=== PATIENT | female | born 1930 | race Caucasian/White ===

== ENCOUNTER → 2017-01-15 | Outpatient (CLI) | payer OTHER ==
[~2017-01-15] MED LIST: ALDACTONE50 MG PO; ALENDRONATE SOD70 MG PO; ALEVE220 MG PO; ASPIRIN81 M2 PO; ATORVASTATIN CA40 MG PO; CARAFATE 1 GM TA1 G1 PO; COREG6.25 MG PO; IBUPROFEN 200200 M1 PO; KLOR-CON 1010 MEQ PO; LASIX 20 MG TAB20 MG PO; MOBIC15 MG PO; PROTONIX40 M1 PO; SYNTHROID50 MCG PO; TYLENOL325 MG PO; VITAMIN D1000 UNI1 PO; VITAMIN D1000 UNIT
== END ==
LOC: CAT 08:22
DX: R91.1 Solitary pulmonary nodule (principal)

== ENCOUNTER → 2017-10-25 | Outpatient (CLI) | payer OTHER ==
[~2017-10-25] MED LIST changes: +ULTRAM 50MG TAB50 MG PO
== END ==
LOC: MRI 10:18
DX: S46.912A Strain of unspecified muscle, fascia and tendon at shoulder and upper arm level, left arm, initial encounter (principal); S43.402A Unspecified sprain of left shoulder joint, initial encounter; M25.412 Effusion, left shoulder; M19.012 Primary osteoarthritis, left shoulder; R60.0 Localized edema; X58.XXXA Exposure to other specified factors, initial encounter; Y93.89 Activity, other specified; Y92.89 Other specified places as the place of occurrence of the external cause; Y99.8 Other external cause status

== ENCOUNTER 2017-12-25 05:26 | Inpatient (IN) | payer OTHER ==
[2017-12-16 13:12] LABS: URINE BILIRUBIN NEGATIVE (Negative); URINE BLOOD NEGATIVE (Negative); URINE CLARITY CLEAR; URINE COLOR YELLOW; URINE GLUCOSE-RANDOM* NEGATIVE (Negative); URINE KETONES NEGATIVE (Negative); URINE LEUKOCYTES-REFLEX NEGATIVE (Negative); URINE NITRITE-REFLEX NEGATIVE (Negative); URINE PROTEIN (DIPSTICK) NEGATIVE (Negative); URINE SPECIFIC GRAVITY 1.015 (1.005-1.035); URINE UROBILINOGEN 0.2 E.U./dl (0.2-1.0)
[2017-12-16 13:13] LABS: HEMOGLOBIN 14.4 gm/dL (12.0-15.0); MCH 31.5 pg (26.0-34.0); MCHC 34.2 g/dL (28.0-37.0); MCV 92.1 fL (80.0-100.0); RBC 4.56 mil/uL (4.20-5.00); RDW 12.9 % (10.5-14.5); WBC 7.4 thou/uL (4.0-11.0)
[2017-12-16 13:23] LABS: CALCIUM 9.7 mg/dL (8.5-10.1); CREATININE 1.1 mg/dL (0.6-1.0); POTASSIUM 4.5 mmol/L (3.5-5.1)
[2017-12-16 13:26] LABS: PROTIME 10.3 Seconds (9.3-11.4)
[~2017-12-25] VITALS: Ht 149.9 cm; Wt 55.3 kg
--- NOTE | ~2017-12-25 | EKG ---
[place] [address] [facility] [place] [place] [address] ELECTROCARDIOGRAM REPORT Name: HIEN BUCK [facility]: [facility] [id number] Admission: Attend Phys: Brian France Discharge: Date of : 34 Report #: [id number] THIS REPORT FOR: //name// [facility] Test Date: 2017-12-16 Test Time: 13:10:59 Pat Name: HIEN BUCK Department: Room: Gender: F Solar Consultant: mai : 1930 Requested By: Brian Nava Order Number: [id number] MD: Rishi Taveras Measurements Intervals [place] Rate: 72 P: 62 AL: 152 QRS: 36 QRSD: 88 T: 59 QT: 391 QTc: 428 Interpretive Statements Sinus rhythm Abnormal R-wave progression, early transition Compared to ECG 05/17/2015 07:59:54 Sinus bradycardia no longer present Electronically Signed On 12-17-2017 10:20:19 CDT by Rishi Taveras [email or web address] <ELECTRONICALLY SIGNED> By: Rishi Taveras MD, [facility] 12/17/17 1020 1310 1310 Rishi Taveras MD, FACC /EPI
--- NOTE | ~2017-12-25 | O ---
[facility] [place] [address] OPERATIVE REPORT Name: HIEN BUCK Room #: 150-1 ADM IN M.R.#: [id number] Admission: 12/25/17 Attend Phys: Brian France Discharge: Date of : 34 Report #: [id number] THIS REPORT FOR: //name// CC: Brian Nava Veronica Dennis DATE OF SERVICE: 12/25/2017 PREOPERATIVE DIAGNOSES: Right shoulder pain, rotator cuff tear arthropathy. POSTOPERATIVE DIAGNOSES: Right shoulder pain, rotator cuff tear arthropathy, with torn long head of biceps tendon and intraarticular loose body. PROCEDURE PERFORMED: Right reverse total shoulder arthroplasty with loose body removal. SURGEON: Brian Nava MD. CERAMIC RESEARCH ENGINEER: Barbie Palacios PA-C. ANESTHESIA: General with preoperative interscalene block. IMPLANTS UTILIZED: DePuy Delta Xtend reverse total shoulder size 10. Hydroxyapatite coated stem with size 1 epiphysis, 38 mm eccentric glenosphere with a +9 poly. DESCRIPTION OF PROCEDURE: After proper identification of the patient and operative site in preoperative holding area, the operative site was signed by myself. Prophylactic antibiotics given. The patient elected to receive an interscalene block after reviewing the risks, benefits, alternatives and complications with Anesthesia. After a satisfactory block, the patient was brought back to the operative suite. After induction of satisfactory general endotracheal anesthesia, the right shoulder was examined, with range of motion was comparable to the preoperative assessment. The patient was carefully positioned in the beach chair position with head of bed elevated approximately 40 degrees. Care was taken to position the neck in a neutral alignment. Anterior deltopectoral approach was planned. A Bycler limb positioning system was utilized throughout the entire procedure. The shoulder was sterilely prepped and draped in the usual manner. Final skin draping was with Ioban. Skin was incised sharply. Full thickness skin flaps were developed. Cephalic vein was identified and retracted laterally. Subdeltoid adhesions were carefully released. A brown retractor was used to retract the soft tissues. A massive rotator cuff tear was noted. Extensive arthrosis on both sides of the joint were noted. With full thickness chondral loss and even mild bone wear of the glenoid, portion of the inferior subscap was still intact, and this was carefully released off the lesser tuberosity. There was no evidence of long [address] [address] OPERATIVE REPORT Name: TREVOR BUCKJOVAN Espino Room #: 150-1 [facility] IN .[place].#: [id number] Admission: 12/25/17 Attend Phys: Brian France Discharge: Date of : 34 Report #: [id number] head of the biceps tendon. A large intra-articular loose body measuring approximately 2 x 2 cm was noted. There was complete tear of the supraspinatus and infraspinatus with a portion of the teres minor still intact. Humeral head was delivered out the wound, and using the appropriate intramedullary cutting guides, which had been reamed up to a size 10, which matched preoperative templating, a humeral head osteotomy was performed in approximately 20 degrees of retroversion using the cutting guide at 155 degrees. Head was removed. Peripheral osteophytes were carefully removed. Overall, bone quality was quite thinned and osteoporotic. Protection plate was applied. At this point, the lamina electrical instrument repairer was used to carefully distract. The joint anterior capsule was released off the subscapularis with a right angle. Labrum was released circumferentially. Inferior capsule was carefully released off the glenoid side at this point, as well as a small portion of the triceps insertion. There was excellent glenoid visualization. The patient had more posterior superior wear of the glenoid. Guide pin was placed, its position was verified visually as well as by palpations where the pin exited the medial glenoid vault. The glenoid was carefully reamed. The Mark reamer was utilized. Any peripheral osteophytes were carefully removed. Central peg was drilled. This was contained and then a standard metaglene was carefully inserted. It had good purchase. Superior and inferior locking screws were placed as well as anterior and posterior nonlocking screws. These were sequentially tightened. Locking screws were then locked. This had excellent purchase. A 38 mm eccentric glenosphere was placed over a guidewire. Eccentricity was positioned. The tightening screw was reversed until a click was noted, and the glenosphere was felt to be seated. This was then tightened, impacted and tightened three additional times until this was felt to be fully seated. The wound was thoroughly irrigated with normal saline. A size 10 stem, size 1 epiphysis that was centered with a +9 poly provided the best overall fit and stability of the shoulder without over tensioning the soft tissues. These were the final implants inserted. Two drill holes have been placed in the lesser tuberosity and bicipital groove region where #2 FiberWires were placed. Repair of the more inferior subscapularis of the wound and humerus had been thoroughly irrigated with normal saline. The implant was assembled on the back table. Sutures were positioned around the prosthesis. It was carefully impacted into position, it was well seated and stable. Again, trial implants were utilized, but a +9 poly provided the best overall fit and stability. It was carefully impacted into position. The joint was reduced. Subscapularis was repaired with modified Rodrigo-Regan technique. Joint was again thoroughly irrigated with normal saline. One gram of vancomycin powder was utilized, deep half of it more superficial. #1 Vicryl was used to close the deltopectoral interval, 2-0 Vicryl, subcutaneous tissues, final skin closure was with a running 3-0 Monocryl stitch. Dermabond was applied as well as sterile dressing. She was placed in a sling and abduction pillow for 4 weeks postoperatively. Qualified physiotherapy assistant utilized throughout the entire [address] [address] OPERATIVE REPORT Name: HIEN BUCK Srinivas Room #: 150-1 [facility] IN [place].#: [id number] Admission: 12/25/17 Attend Phys: Brian France Discharge: Date of : 34 Report #: [id number] procedure to aid in patient limb positioning, visualization, retraction of soft tissues, instrument passage closure and sling application. <ELECTRONICALLY SIGNED> By: Brian Nava MD 12/25/17 1033 0951 1030 Brian Nava MD /nt
[2017-12-25 07:30] VITALS: BP 152/71
[2017-12-25 20:00] VITALS: BP 135/55
[2017-12-26 04:00] VITALS: BP 131/51
[2017-12-26 05:40] LABS: HEMOGLOBIN 10.3 gm/dL (12.0-15.0)
[2017-12-26 05:47] LABS: POTASSIUM 4.2 mmol/L (3.5-5.1)
[2017-12-26 07:30] VITALS: BP 114/52
[2017-12-26 15:10] VITALS: BP 105/53
[2017-12-26 15:53] VITALS: BP 105/53
== END 2017-12-26 17:54 | disposition home or self-care (01) | DRG 483 ==
LOC: TBA 05:26 → 4N 05:26 → PRE 05:42 → 4N 10:41 → ENTRNSPT 12-26 17:29 → 4N 12-26 17:54
PROVIDERS: Orthopaedic Surgery Sports Medicine; Physician Assistant Surgical
PROC: 0RRJ00Z Replacement of Right Shoulder Joint with Reverse Ball and Socket Synthetic Substitute, Open Approach (ICD-10-PCS; principal; 2017-12-25)
DX: M75.101 Unspecified rotator cuff tear or rupture of right shoulder, not specified as traumatic (principal); M75.21 Bicipital tendinitis, right shoulder; Z82.61 Family history of arthritis; Z80.3 Family history of malignant neoplasm of breast; M19.011 Primary osteoarthritis, right shoulder
CPT/HCPCS: 10790; 50010; 50101; 50172; 50386; 50417; 50697; 50733; 51771; 52138; 53000; 53078; 54118; 55435; 56524; 56525; 56526; 56530; 57095; 57103; 62110; 62900; 70005

== ENCOUNTER → 2019-09-03 | Outpatient (CLI) | payer OTHER | LOC: ULTRA 08-19 09:53 | DX: I65.23 Occlusion and stenosis of bilateral carotid arteries (principal) ==

== ENCOUNTER → 2019-10-14 | Outpatient (CLI) | payer OTHER ==
[~2019-10-14] VITALS: Ht 147.3 cm; Wt 63.0 kg
[~2019-10-14] MED LIST changes: +PLAVIX 75 MG TA75 MG PO
[2019-10-14 07:26] VITALS: BP 165/69
[2019-10-14 07:48] LABS: HEMATOCRIT 39.8 % (37.0-47.0); HEMOGLOBIN 12.9 gm/dL (12.0-15.0); MCH 29.9 pg (26.0-34.0); MCHC 32.4 g/dL (28.0-37.0); MCV 92.3 fL (80.0-100.0); RBC 4.32 mil/uL (4.20-5.00); RDW 13.8 % (10.5-14.5); WBC 7.1 thou/uL (4.0-11.0)
[2019-10-14 08:03] LABS: CALCIUM 9.1 mg/dL (8.5-10.1); CREATININE 0.9 mg/dL (0.6-1.0); POTASSIUM 3.5 mmol/L (3.5-5.1)
== END | disposition home or self-care (01) ==
LOC: CATH 06:55
PROVIDERS: Nuclear Medicine Nuclear Cardiology
DX: I65.22 Occlusion and stenosis of left carotid artery (principal); I70.1 Atherosclerosis of renal artery; I73.9 Peripheral vascular disease, unspecified; I10 Essential (primary) hypertension; M81.0 Age-related osteoporosis without current pathological fracture; Z98.890 Other specified postprocedural states; Z79.899 Other long term (current) drug therapy; Z90.49 Acquired absence of other specified parts of digestive tract; Z90.711 Acquired absence of uterus with remaining cervical stump; Z85.820 Personal history of malignant melanoma of skin; Z98.41 Cataract extraction status, right eye; Z98.42 Cataract extraction status, left eye

== ENCOUNTER → 2019-12-08 | Outpatient (CLI) | payer OTHER | LOC: SJCVCIMAG 10:40 | DX: I65.23 Occlusion and stenosis of bilateral carotid arteries (principal); I73.9 Peripheral vascular disease, unspecified; I10 Essential (primary) hypertension; E78.00 Pure hypercholesterolemia, unspecified; E11.9 Type 2 diabetes mellitus without complications; E78.5 Hyperlipidemia, unspecified; Z79.899 Other long term (current) drug therapy ==